=== PATIENT | female | born 1980 | race Caucasian/White ===

== ENCOUNTER 2017-04-23 13:35 | Emergency (ER) | payer OTHER ==
[~2017-04-23] VITALS: Ht 172.7 cm; Wt 118.9 kg
[2017-04-23 13:39] VITALS: Ht 172.7 cm; Wt 118.9 kg
[2017-04-23] MEDS ORDERED: IBUP-1542 PO (15:15)
[2017-04-23] MEDS ORDERED: CLIN-73 PO (15:15)
[2017-04-23] MEDS ORDERED: HYDR-906 PO (15:15)
[2017-04-23] MEDS ORDERED: IBUPROFEN 800 MG TAB PO ONE (15:30)
--- NOTE | 2017-04-23 15:48 | ERD ---
ER Documentation Chief Complaint Chief Complaint dental pain/swelling R/upper teeth x 1 week HPI This is a 36-year-old female who presents emergency department today of right- sided dental pain for the past week and cheek swelling that started last night. Patient states that last week she had a tooth removed and previous to that had been given Augmentin at an outside hospital. States that there was an infection draining from her tooth. Patient states that she has an appointment with oral surgery in 3 days. That she was taking [place] but is now just taking Motrin 800 mg. Denies any fevers or chills ROS All systems reviewed and are negative except as per history of present illness. Medications Home Meds Active Scripts Hydrocodone/Acetaminophen ([place] 5-325 Tablet) 1 Each Tablet, 1 TAB PO Q6H Y for PAIN, #10 TAB Prov:BECKA THAKUR PA-C 04/23/17 Ibuprofen* (Motrin*) 600 Mg Tab, 600 MG PO Q6, #30 TAB Prov:BECKA THAKUR PA-C 04/23/17 Clindamycin Hcl* (Clindamycin Hcl*) 300 Mg Capsule, 300 MG PO TID for 7 Days, CAP Prov:BECKA THAKUR PA-C 04/23/17 Allergies Allergies: Coded Allergies: No Known Allergy (Unverified , 04/23/17) PMhx/Soc History of Surgery: Yes (nose) Hx Psychiatric Problems: Yes (depression, anxiety) Hx Miscellaneous Medical Probl: Yes (hypothiaroid,) Hx Alcohol Use: No Hx Substance Use: No Hx Tobacco Use: No Smoking Status: Never smoker Physical Exam Vitals Vital Signs Date Time Temp Pulse Resp B/P Pulse Ox O2 Delivery O2 Flow Rate FiO2 04/23/17 13:39 99.5 98 20 143/95 97 Physical Exam Const: NAD Head: Atraumatic Eyes: Normal Conjunctiva ENT: Ears TMs normal. Nose no drainage. Throat erythema no exudate no vesicles no evidence of swelling. no evidence of right-sided facial swelling Neck: Full range of motion..~ No meningismus. Resp: Clear to auscultation bilaterally CSkin: No petechiae or rashes BackNeur: Awake and alert Psych: Normal Mood and Affect Results 24 hrs Current Medications Medications (Trade) Dose Ordered Sig/Cara Route PRN Reason Start Time Stop Time Status Last Admin Dose Admin Ibuprofen (Motrin) 800 mg ONCE ONCE PO 04/23/17 15:30 04/23/17 15:31 DC 04/23/17 15:23 Procedures/MDM This is a 36 -year-old female who presents the emergency department today complaining of some right-sided dental pain and right-sided facial swelling. Patient indicated that this morning her eye was swollen and the pain was moving up towards her forehead. Patient is afebrile and otherwise well-appearing. She is talkative and in no acute distress. There is no evidence of facial swelling and no fluctuance or induration anywhere along her inferior orbital area or cheek. I have explained this to the patient. Patient does have evidence of where the upper right molar was removed however it is difficult for me to see whether she has a dry socket or not. I have explained this to the patient. Back the patient's pain and possibly subjective feelings of swelling may be related to the removal of the tooth and not necessarily an abscess. Symptoms at this time is consistent with dental pain and possible early abscess. Patient was driving herself here with her child and she was therefore given Motrin here in the emergency department. I gave her a couple of pills of [place] to hold her over for the next couple of days until she sees oral surgery. She was also given a prescription for clindamycin to treat possible dental abscess although I have low suspicion for this. Patient had already previously taken Augmentin. At this time the patient is stable for discharge and outpatient management. Patient should follow up with their PCP in the next 1-2 days. They may return to the emergency department sooner for any persistent or worsening of symptoms. Patient understood and agreed with the plan. Departure Diagnosis: Primary Impression: Pain, dental Condition: Fair Patient Instructions: Dental Pain Referrals: oral surgeon Additional Instructions: Call your primary care doctor TOMORROW for an appointment during the next 1-2 days.See the doctor sooner or return here if your condition worsens before your appointment time. Ointment with your dentist and keep your appointment with oral surgeon on Tuesday. Take antibiotics as prescribed. Take [place] for severe pain otherwise take Naprosyn or Tylenol or Motrin. BECKA THAKUR PA-C Apr 23, 2017 15:48
== END 2017-04-23 15:30 | disposition home or self-care (01) ==
LOC: FTE 13:35
DX: K08.89 Other specified disorders of teeth and supporting structures (principal); E03.9 Hypothyroidism, unspecified
CPT/HCPCS: Z7502; Z7610; 99284